=== PATIENT | female | born 1990 | race African-American/Black ===

== ENCOUNTER 2023-12-05 10:13 | Emergency (ER) | payer OTHER ==
[2023-12-05] MEDS ORDERED: Cyclobenzaprine 10 MG TAB ONE (11:15)
[2023-12-05] MEDS ORDERED: HYDROcodone/Acetaminophen 5/325 mg Tablet ONE (11:15)
[2023-12-05] MEDS ORDERED: Boostrix 0.5 ML (Tdap) VIAL (>/=7 yrs of age) ONE (11:17)
== END 2023-12-05 13:09 | disposition home or self-care (01) ==
LOC: ERS 10:13
DX: S80.211A Abrasion, right knee, initial encounter (principal); V89.2XXA Person injured in unspecified motor-vehicle accident, traffic, initial encounter; Z23 Encounter for immunization
CPT/HCPCS: 90471; 90715